=== PATIENT | male | born 1995 | race Caucasian/White ===

== ENCOUNTER 2018-01-25 10:33 | Observation (INO) ==
[2018-01-25] MEDS ORDERED: 0.9 % Sodium Chloride 1,000 ML IVC ONE ×3 (11:11→13:36)
[2018-01-25] MEDS ORDERED: Ondansetron 4 MG/2 ML VIAL IVP ONE (11:11)
[2018-01-25] MEDS ORDERED: *HR* HYDROmorphone (PF) 1 MG/ML SYRINGE IVP ONE (11:16)
[2018-01-25] MEDS ORDERED: Isovue-370 500 ML INFUS..BTL IV ONE (11:17)
[2018-01-25 11:40] LABS: Basophils % 0.3 %; Eosinophils # 0.1 K/mcL (0.0-0.6); Eosinophils % 0.5 %; Hematocrit 46.7 % (37.5-50.1); Hemoglobin 16.4 g/dL (12.9-16.9); Immature Granulocytes % 0.1 % (0-4); Lymphocytes # 3.5 K/mcL (0.6-4.6); Lymphocytes % 34.2 %; Mean Corpuscular HGB Conc 35.1 g/dL (31.6-35.5); Mean Corpuscular Volume 79.8 fL (83.0-100.0); Mean Platelet Volume 9.8 fL (9.4-12.4); Monocytes # 0.6 K/mcL (0.0-1.3); Monocytes % 6.1 %; Platelet Count 321 K/mcL (140-400); Red Blood Count 5.85 M/mcL (4.19-5.50); Red Cell Distribution Width 12.5 % (11.5-14.5); Segmented Neutrophils % 58.8 %
[2018-01-25 12:24] LABS: Alanine Aminotransferase 12 Units/L (7-52); Albumin 4.4 g/dL (3.5-5.7); Albumin/Globulin Ratio 1.3 (1.1-2.2); Alkaline Phosphatase 77 Units/L (34-104); Aspartate Amino Transferase 9 Units/L (13-39); BUN/Creatinine Ratio 16 (6-26); Bilirubin,Indirect 0.4 mg/dL (0.0-1.2); Bilirubin,Total 0.4 mg/dL (0.3-1.0); Blood Urea Nitrogen 16 mg/dL (6-20); Calcium 9.9 mg/dL (8.6-10.3); Carbon Dioxide 26 mEq/L (23-29); Chloride 103 mEq/L (98-107); Globulin 3.3 g/dL (2.4-3.5); Glucose 248 mg/dL (70-105); Lipase 11 Units/L (11-82); Osmolality,Calculated 293 (280-300); Potassium 3.8 mEq/L (3.5-5.1); Sodium 137 mEq/L (136-145); Total Protein 7.7 g/dL (6.4-8.9); eGFR For Non-African Americans > 60 (> 60)
--- NOTE | 2018-01-25 12:24 | Emergency Department Note ---
Disposition Clinical Impression: Tachycardia Acute appendicitis Qualifiers: Acute appendicitis type: with localized peritonitis Qualified Code(s): K35.3 - Acute appendicitis with localized peritonitis Disposition: Admitted As Inpatient Condition: Good Referrals: NONE,PCP [Primary Care Provider] - Sheila Bray [Family Provider] - Forms: ED Satisfaction Letter, Work/School Release Abdominal Pain HPI - General Chief Complaint: ED Abdominal Pain Stated Complaint: "R low abd pain" Source: patient Mode of arrival: ambulatory Limitations: no limitations Nursing Notes Reviewed: Yes Vital Signs Reviewed: Yes - History of Present Illness HPI Narrative: Medical history of diabetes presenting for evaluation of abdominal pain 2 days without fevers chills or vomiting. Started yesterday as a dull pain in the right lower quadrant that has been progressively worse in nature. Significant tenderness to palpation with associated guarding. No rebound tenderness. Not associated with heeltap, rising, pain with speed bumps while driving. Patient has had nausea and mildly decreased appetite but no nausea or vomiting. No change in bowel movements. Patient's remains tachycardic on exam which she states is possibly secondary to anxiety as well as having to walk through the whole hospital to find the emergency department. Pain Scale: 5 - Related Data Allergies Allergy/AdvReac Type Severity Reaction Status Date / Time Penicillins Allergy Hives Verified 01/25/18 11:41 All systems ED: reviewed and negative except as stated. Review of Systems: As Per HPI Constitutional: Denies: fever, chills Cardiovascular: Denies: chest pain, palpitations Respiratory: Denies: cough, dyspnea Gastrointestinal: Reports: abdominal pain, nausea. Denies: vomiting, diarrhea, constipation Genitourinary: Denies: urgency, dysuria, frequency Musculoskeletal: Denies: back pain Integumentary: Denies: rash, abrasion, lesions Neurological: Denies: headache, weakness Psychiatric: Denies: anxiety Endocrine: Denies: fatigue Abdominal Pain PMH - Past Medical History Medical history: Reports: diabetes Male Surgical History: Reports: Adenoidectomy, Tonsillectomy Psychiatric history: Reports: no psych history - Social History Smoking status: Never smoker Alcohol use: Reports: none Drug use: Reports: none Physical Exam General: Well appearing, nontoxic, no acute distress Head: Normocephalic Atraumatic Eyes: PERRL, EOMI ENT: Airway patent, no stridor Neck: supple Chest: Lungs clear to auscultation bilateral Cardiac: Tachycardic but regular with no significant rubs murmurs or gallops Abdomen: soft, significant tenderness to the right lower quadrant with guarding but no rebound, nondistended; no CVA tenderness. Musculoskeletal: Calves symmetric, nontender Skin: No rash, normal skin tone Neuro: Awake alert and appropriate without focal deficit. - General Limitations: no limitations General appearance: alert, in no apparent distress Course - Reevaluation(s) Reevaluation #1: Patient remains stable within the emergency department. He has only required 1 dose of pain medications. 2 L of fluids have been ordered. Patient's heart rate is improving. EKG shows sinus tachycardia. Cefoxitin ordered as discussed with Dr. Bellamy. - Consultations Consultation #1: Discussed with Dr. Bellamy. Type I diabetic with typically well-controlled blood sugars at home. Mildly atypical presentation with CT confirmed acute appendicitis. No significant lab abnormalities. No ketones within the urine. Patient has received fluids for tachycardia. He accepts the patient for admission. Vital Signs Temperature 98.0 F 01/25/18 10:37 Pulse Rate 141 01/25/18 10:37 Respiratory Rate 22 01/25/18 10:37 Blood Pressure 145/85 01/25/18 10:37 O2 Sat by Pulse Oximetry 97 01/25/18 10:37 Temperature 98.0 F 01/25/18 10:48 Pulse Rate 141 01/25/18 13:32 Respiratory Rate 18 01/25/18 13:32 Blood Pressure 143/73 01/25/18 13:32 O2 Sat by Pulse Oximetry 97 01/25/18 13:32 Oxygen Delivery Oxygen Delivery Room Air Abdominal Pain - Medical Records Medical records reviewed: Yes I reviewed the patient's medical records. - Lab Data Lab results reviewed: Yes I reviewed the patient's lab results. Result diagrams: 01/25/18 11:20 01/25/18 11:20 Lab Results 01/25/18 01/25/18 01/25/18 Range/Units 10:45 11:20 11:20 WBC 10.2 (4.3-11.1) K/mcL RBC 5.85 H (4.19-5.50) M/mcL Hgb 16.4 (12.9-16.9) g/dL Hct 46.7 (37.5-50.1) % MCV 79.8 L (83.0-100.0) fL MCH 28.0 (28.0-33.3) pg MCHC 35.1 (31.6-35.5) g/dL RDW 12.5 (11.5-14.5) % Plt Count 321 (140-400) K/mcL MPV 9.8 (9.4-12.4) fL Immature Gran % 0.1 (0-4) % Seg Neutrophils % 58.8 % Lymphocytes % 34.2 % Monocytes % 6.1 % Eosinophils % 0.5 % Basophils % 0.3 % Neutrophils # 6.0 (1.6-8.9) K/mcL Lymphocytes # 3.5 (0.6-4.6) K/mcL Monocytes # 0.6 (0.0-1.3) K/mcL Eosinophils # 0.1 (0.0-0.6) K/mcL Basophils # 0.0 (0.0-0.2) K/mcL Sodium 137 (136-145) mEq/L Potassium 3.8 (3.5-5.1) mEq/L Chloride 103 (98-107) mEq/L Carbon Dioxide 26 (23-29) mEq/L BUN 16 (6-20) mg/dL Creatinine 0.99 (0.70-1.30) mg/dL Est GFR ( Amer) > 60 (> 60) Est GFR (Non-Af Amer) > 60 (> 60) BUN/Creatinine Ratio 16 (6-26) Glucose 248 H (70-105) mg/dL Calculated Osmolality 293 (280-300) Calcium 9.9 (8.6-10.3) mg/dL Total Bilirubin 0.4 (0.3-1.0) mg/dL Direct Bilirubin 0.0 (0.0-0.2) mg/dL Indirect Bilirubin 0.4 (0.0-1.2) mg/dL AST 9 L (13-39) Units/L ALT 12 (7-52) Units/L Alkaline Phosphatase 77 (34-104) Units/L Serum Total Protein 7.7 (6.4-8.9) g/dL Albumin 4.4 (3.5-5.7) g/dL Globulin 3.3 (2.4-3.5) g/dL Albumin/Globulin Ratio 1.3 (1.1-2.2) Lipase 11 (11-82) Units/L Urine Color Yellow (Yellow) Urine Clarity Clear (Clear) Urine pH 6.5 (5.0-8.0) pH Units Ur Specific [place] 1.015 (1.010-1.025) Urine Protein 30 H (Neg-Trace) mg/dL Urine Glucose (UA) >=1000 H (Normal) mg/dL Urine Ketones Negative (Negative) mg/dL Urine Blood Negative (Negative) Urine Nitrite Negative (Negative) Urine Bilirubin Negative (Negative) Urine Urobilinogen Normal (Normal) mg/dL Ur Leukocyte Esterase Negative (Negative) Urine Bacteria None Seen (None-Few) per hpf Ur Culture Indicated? NO (NO) - Radiology Data Radiology results reviewed: Yes I reviewed the patient's radiology results. - EKG Data EKG attestation: Yes I reviewed and interpreted this EKG. EKG results narrative: EKG shows sinus tachycardia with ventricular rate of 143. NV 138. QRS 85. QTC 410. Patient has no significant ST elevations or depressions. No previous EKG for comparison.
[2018-01-25 12:58] LABS: Bilirubin,Urine Negative (Negative); Blood,Urine Negative (Negative); Clarity,Urine Clear (Clear); Color,Urine Yellow (Yellow); Glucose,Urine (UA) >=1000 mg/dL (Normal); Ketones,Urine Negative (Negative); Leukocyte Esterase,Urine Negative (Negative); Nitrite,Urine Negative (Negative); PH,Urine 6.5 pH Units (5.0-8.0); Protein,Urine 30 mg/dL (Neg-Trace); Specific Gravity,Urine 1.015 (1.010-1.025); Urobilinogen,Urine Normal (Normal)
[2018-01-25 13:17] LABS: Bacteria,Urine None Seen per hpf (None-Few)
[2018-01-25] MEDS ORDERED: cefOXitin 2,000 MG in 0.9 % Sodium Chloride Mini Bag 100 ML IVPB STA (13:35)
[2018-01-25] MEDS ORDERED: *HR* Promethazine 25 MG/ML VIAL IVP PRN ×3 (14:13→18:34)
[2018-01-25] MEDS ORDERED: Ondansetron 4 MG/2 ML VIAL IVP PRN ×2 (14:13→18:34)
[2018-01-25] MEDS ORDERED: OXYCODONE Oral CONC 10 MG/0.5 ML ORAL.SYG SL PRN ×4 (14:13→18:34)
[2018-01-25] MEDS ORDERED: 0.9 % Sodium Chloride 1,000 ML IVC SCH (14:15)
[2018-01-25] MEDS ORDERED: Pantoprazole 40 MG VIAL IVP SCH (14:15)
[2018-01-25] MEDS ORDERED: *HR* Dextrose 50 % in Water (Syg) 50 ML SYRINGE IVP PRN ×2 (14:18→18:34)
[2018-01-25] MEDS ORDERED: Dextrose Gel 15 GM/37.5 ML TUBE PO PRN ×4 (14:18→18:34)
[2018-01-25] MEDS ORDERED: D5% in Water 1,000 ML IVC PRN ×2 (14:18→18:34)
--- NOTE | 2018-01-25 14:38 | General Surg History&Physical ---
<Michel Calhoun T - Last Filed: 01/25/18 14:43> Date of Encounter: 01/25/18 Time of Encounter: 14:31 Assessment and Plan (1) Acute appendicitis Current Visit: Yes Status: Acute DX: Acute appendicitis confirmed by CT Ab/Pelvis and clinical presentation of RLQ abdominal pain. Plan: OR with Dr. Bellamy planned for today. Consent obtained. The assessment and plan as outlined above was discussed with the patient and/or family members who expressed understanding and agreement. All questions were answered. Qualifiers: Acute appendicitis type: with localized peritonitis Qualified Code(s): K35.3 - Acute appendicitis with localized peritonitis History of Present Illness Chief complaint: Abdominal Pain HPI: Mr. Webb is a 22 year old male complaining of 2 days of abdominal pain. Pain is in his RLQ, constant, rated 4/10 in severity, and worsening. He denies N/V, fever, night sweats. He is passing gas, last BM was yesterday, and his last meal was last night. He has a 10 year history of T1DM which is monitored by an endcronologist. Patient states last HgbA1C was 9, and patient has always had a high A1C. CT of abdomen/pevlis done at ED shows appedicitis without rupture, fatty liver, and prominent mesenteric lymph nodes. At ED CBC was also one shwoing, nrmal WBC 10.2, normal H/H 16.4/46.7. CMP showed glucose elevated at 248. Patient has no history of abdominal surgeries, cardivascular disease, or use of blood thinners. Consent was take for laproscopic appendectomy. Patient was tachyaardic at ED. Past Med Surg Social Fam HX - Past Medical History Medical history: diabetes Psychiatric history: no psych history - Social History Smoking Status: Never smoker Alcohol use: none Drug use: none Medications and Allergies Subcutaneous Insulin Pump [T:Slim] 1 each MC AD 01/25/18 [History] 3 Allergy/AdvReac Type Severity Reaction Status Date / Time Penicillins Allergy Hives Verified 01/25/18 14:25 Review of Systems All systems PM: The remainder of the systems were reviewed and are negative - Constitutional as per HPI - Gastrointestinal as per HPI General Surgery Exam Initial Vital Signs Temp Pulse Resp BP Pulse Ox 98.0 F 141 22 145/85 97 01/25/18 10:37 01/25/18 10:37 01/25/18 10:37 01/25/18 10:37 01/25/18 10:37 - General physical appearance well developed, well nourished, moderate distress - Respiratory normal expansion, clear to auscultation - Cardiovascular Cardiovascular exam: Present: tachycardia, no murmurs/rubs/gallops - Abdomen Abdomen general surgery: Present: bowel sounds present, soft, tender. Absent: distended, guarding Abdominal Tenderness: Present: RLQ Hernia: Present: none - Neurologic Present: CN 2-12 grossly intact - Psychiatric Psychiatric general surgery: Present: A&Ox3, appropriate, oriented to person, oriented to place, oriented to time, speech is normal, memory intact Results - Labs 01/25/18 11:20 01/25/18 11:20 Abnormal lab results RBC 5.85 M/mcL (4.19-5.50) H 01/25/18 11:20 MCV 79.8 fL (83.0-100.0) L 01/25/18 11:20 Glucose 248 mg/dL (70-105) H 01/25/18 11:20 AST 9 Units/L (13-39) L 01/25/18 11:20 Urine Protein 30 mg/dL (Neg-Trace) H 01/25/18 10:45 Urine Glucose (UA) >=1000 mg/dL (Normal) H 01/25/18 10:45 Diabetes panel 01/25/18 Range/Units 11:20 Sodium 137 (136-145) mEq/L Potassium 3.8 (3.5-5.1) mEq/L Chloride 103 (98-107) mEq/L Carbon Dioxide 26 (23-29) mEq/L BUN 16 (6-20) mg/dL Creatinine 0.99 (0.70-1.30) mg/dL Glucose 248 H (70-105) mg/dL Calcium 9.9 (8.6-10.3) mg/dL AST 9 L (13-39) Units/L ALT 12 (7-52) Units/L Alkaline Phosphatase 77 (34-104) Units/L Albumin 4.4 (3.5-5.7) g/dL Calcium panel 01/25/18 Range/Units 11:20 Calcium 9.9 (8.6-10.3) mg/dL Albumin 4.4 (3.5-5.7) g/dL Pituitary panel 01/25/18 Range/Units 11:20 Sodium 137 (136-145) mEq/L Potassium 3.8 (3.5-5.1) mEq/L Chloride 103 (98-107) mEq/L Carbon Dioxide 26 (23-29) mEq/L BUN 16 (6-20) mg/dL Creatinine 0.99 (0.70-1.30) mg/dL Glucose 248 H (70-105) mg/dL Calcium 9.9 (8.6-10.3) mg/dL Adrenal panel 01/25/18 Range/Units 11:20 Sodium 137 (136-145) mEq/L Potassium 3.8 (3.5-5.1) mEq/L Chloride 103 (98-107) mEq/L Carbon Dioxide 26 (23-29) mEq/L BUN 16 (6-20) mg/dL Creatinine 0.99 (0.70-1.30) mg/dL Glucose 248 H (70-105) mg/dL Calcium 9.9 (8.6-10.3) mg/dL Total Bilirubin 0.4 (0.3-1.0) mg/dL AST 9 L (13-39) Units/L ALT 12 (7-52) Units/L Alkaline Phosphatase 77 (34-104) Units/L Albumin 4.4 (3.5-5.7) g/dL All other labs normal. <Terrence Bellamy - Last Filed: 01/25/18 22:02> Date of Encounter: 01/25/18 History of Present Illness HPI: Mr. Webb is a 22 year old male Review of Systems All systems PM: The remainder of the systems were reviewed and are negative General Surgery Exam Initial Vital Signs Temp Pulse Resp BP Pulse Ox 98.0 F 141 22 145/85 97 01/25/18 10:37 01/25/18 10:37 01/25/18 10:37 01/25/18 10:37 01/25/18 10:37 Results - Labs 01/25/18 11:20 01/25/18 11:20 Abnormal lab results RBC 5.85 M/mcL (4.19-5.50) H 01/25/18 11:20 MCV 79.8 fL (83.0-100.0) L 01/25/18 11:20 Glucose 248 mg/dL (70-105) H 01/25/18 11:20 AST 9 Units/L (13-39) L 01/25/18 11:20 Urine Protein 30 mg/dL (Neg-Trace) H 01/25/18 10:45 Urine Glucose (UA) >=1000 mg/dL (Normal) H 01/25/18 10:45 All other labs normal. - Attending Attestation I examined this patient and my medical decision-making was reviewed with the Resident Physician. I agree with the documented findings, disposition and treatment plan as described except to the extent set forth below. The patient is seen and evaluated with the resident prior to surgery. I personally reviewed the CAT scan images. He is history and radiologic findings are consistent with acute appendicitis. I have recommended laparoscopic appendectomy. He understands this and wishes to proceed. Terrence Bellamy MD FACS
[2018-01-25] MEDS ORDERED: CefOXitin 1,000 MG VIAL ONE (15:33)
[2018-01-25] MEDS ORDERED: Ondansetron 4 MG/2 ML VIAL ONE ×2 (15:42→17:47)
[2018-01-25] MEDS ORDERED: Lidocaine -MPF 2% 2 ML VIAL ONE ×3 (15:42→17:47)
[2018-01-25] MEDS ORDERED: *HR* FentaNYL (PF) 100 MCG/2 ML VIAL ONE ×2 (15:42→17:46)
[2018-01-25] MEDS ORDERED: Neostigmine Methylsulfate 3 MG/3 ML SYRINGE ONE (15:42)
[2018-01-25] MEDS ORDERED: *HR* Propofol 200 MG/20 ML VIAL IVP ONE ×3 (15:42→17:46)
[2018-01-25] MEDS ORDERED: *HR* Rocuronium Bromide 50 MG/5 ML VIAL ONE (15:42)
[2018-01-25] MEDS ORDERED: *HR* Midazolam HCl 2 MG/2 ML VIAL ONE ×2 (15:42→15:57)
--- NOTE | 2018-01-25 15:42 | Anesthesia Evaluation PreOp ---
Date of Encounter: 01/25/18 Time of Encounter: 15:40 - Past History Planned Operation: Lap Appy Cardiac History: Denies any Significant Hx Pulmonary History: Denies Any Significant HX AREA COORDINATOR History: Denies Any Significant HX Other Medical History: Diabetes Type I (on Insulin pump. HbA1c = 9) Anesthesia History: No Prior Anesthetic Complications, Past Anesthesia, MH (No FamHx of MH) Alcohol Use: none Drug use: none Medications and Allergies Subcutaneous Insulin Pump [T:Slim] 1 each MC AD 01/25/18 [History] 3 Allergy/AdvReac Type Severity Reaction Status Date / Time Penicillins Allergy Hives Verified 01/25/18 14:25 - Meds/Allergy Pre-op Review Medications Reviewed: Yes Allergies Reviewed: Yes Beta Blockers on Current Med List: No Anesthesia Results - Labs 01/25/18 11:20 01/25/18 11:20 Laboratory Results Impressions Abdomen/Pelvis CT 01/25/18 11:17 IMPRESSION: 1. Acute appendicitis without rupture. 2. Fatty infiltration of the liver. 3. Mildly prominent reactive mesenteric nodes. RECOMMENDATIONS: Surgical consultation D/ / 01/25/2018 14:25:03 Manda Amaral MD / Jenny Price Interpreting Provider: Manda Amaral MD Anesthesia Exam Vital Signs Temp Pulse Resp BP Pulse Ox 01/25/18 13:32 141 18 143/73 97 01/25/18 10:53 153 18 143/98 95 01/25/18 10:48 98.0 F 141 22 145/85 97 01/25/18 10:37 98.0 F 141 22 145/85 97 Intake and Output 01/24/18 01/25/18 01/25/18 23:59 07:59 15:59 Intake Total 1000 / 1000 Balance 1000 / 1000 Intake: IV Fluids 1000 / 1000 0.9 % Sodium Chloride 1,000 ML 1000 / 1000 @ 999 mls/hr IVC .Q1H1M ONE Rx# :[id number] Other: Weight 113.001 kg Patient Weight 01/25/18 23:59 Weight 113.001 kg Height: 5'8" Weight: 249# BMI = 38 NPO (# of Hours): [place] Pain Scale Used: Numeric (1 - 10) - HEENT Pupil (Motor): Pupils equal, EOMI Mallampati: III Teeth: Normal Oral Opening: Greater than 3 - AREA COORDINATOR LOC: Oriented AREA COORDINATOR Motor: Normal RUE, Normal LUE, Normal RLE, Normal LLE, Normal Face AREA COORDINATOR Sensory: Normal: RUE, LUE, RLE, LLE, Face - Cardiac Rhythm: Regular Murmur: None - Pulmonary Breath Sounds: bilateral Clear Respiratory Effort: Symmetrical Anesthesia Assess/Plan ASA Score: 3 (Type 1 DM) Modified [place] Scale for Level of Consciousness: Cooperative, oriented, and tranquil Anesthetic Plan: General Monitoring Plan: Standard Monitors Recovery Plan: PACU Anes Supervising Prov Stmt: Pt seen/evaluated, R&B Discussed, questions answered and consent obtained. Ana Maria Barnard MD
[2018-01-25] MEDS ORDERED: *HR* Succinylcholine 200 MG/10 ML VIAL IVP ONE ×2 (15:46→17:47)
[2018-01-25] MEDS ORDERED: Lidocaine -MPF 4% 5 ML AMPUL ONE ×2 (15:46→17:47)
[2018-01-25] MEDS ORDERED: *HR* Morphine 2 MG/ML SYRINGE IVP PRN ×2 (15:48→18:34)
[2018-01-25] MEDS ORDERED: *HR* OxyCODONE Immed Rel 5 MG TABLET PO PRN ×2 (15:48→18:34)
--- NOTE | 2018-01-25 15:57 | Discharge Summary ---
Date of Encounter: 01/26/18 Time of Encounter: 07:00 - Discharge Diagnosis (1) Acute appendicitis Priority: Primary Status: Acute Qualifiers: Acute appendicitis type: with localized peritonitis Qualified Code(s): K35.3 - Acute appendicitis with localized peritonitis (2) Diabetes mellitus Priority: Secondary Status: Acute Qualifiers: Diabetes mellitus type: type 1 Diabetes mellitus complication status: with unspecified complications Qualified Code(s): E10.8 - Type 1 diabetes mellitus with unspecified complications General Surgery Exam Initial Vital Signs Temp Pulse Resp BP Pulse Ox 98.0 F 141 22 145/85 97 01/25/18 10:37 01/25/18 10:37 01/25/18 10:37 01/25/18 10:37 01/25/18 10:37 Vital Signs Temp Pulse Resp BP Pulse Ox 01/26/18 06:48 98.0 F 104 14 123/76 96 01/26/18 03:59 97.9 F 108 14 116/69 95 01/25/18 22:52 98.3 F 134 16 130/74 96 01/25/18 21:14 98.8 F 133 14 129/76 94 01/25/18 20:25 98.7 F 133 14 115/63 93 01/25/18 19:00 97.9 F 130 18 119/75 97 01/25/18 18:30 98.6 F 119 18 136/78 95 01/25/18 18:15 97.3 F L 107 16 132/76 94 01/25/18 18:05 97.3 F L 113 16 129/80 95 01/25/18 17:55 113 16 133/84 95 01/25/18 17:45 113 16 123/70 93 01/25/18 17:35 97.0 F L 112 16 115/64 95 01/25/18 13:32 141 18 143/73 97 01/25/18 10:53 153 18 143/98 95 01/25/18 10:48 98.0 F 141 22 145/85 97 01/25/18 10:37 98.0 F 141 22 145/85 97 Intake and Output 01/25/18 01/25/18 01/26/18 15:59 23:59 07:59 Intake Total 1000 / 1000 1350 / 1350 Output Total 20 / 20 300 / 300 Balance 1000 / 1000 -20 / -20 1050 / 1050 Intake: IV Fluids 1000 / 1000 1100 / 1100 0.9 % Sodium Chloride 1,000 ML 1000 / 1000 1000 / 1000 @ 125 mls/hr IVC .Q8H BRIAN Rx#: [id number] Ofirmev 1,000 mg/100 ml 1,000 100 / 100 mg In 100 ml @ 400 mls/hr IVPB Q6HR BRIAN Rx#:[id number] Oral 250 / 250 Output: Urine 0 / 0 300 / 300 Estimated Blood Loss Other: Percent of Meal Consumed 100% # Bowel Movements 0 Weight 113.001 kg 114.9 kg Blood Glucose* 271 Patient Weight 01/26/18 23:59 Weight 114.9 kg VITAL SIGNS: Reviewed. See [facility] GENERAL: In no apparent distress. (Noted per bedside RN, and MAR patient has been refusing insulin coverage) HEENT: Normocephalic, atraumatic, pupils are equal and reactive, extraocular motions intact, oropharynx is pink and moist, there is no neck adenopathy or JVD noted. CHEST/RESPIRATORY: The thorax is free from signs of trauma. Lung sounds: clear to auscultation, normal respiratory effort CARDIAC: Regular rate and rhythm (92 104 bpm). Normal S1 and S2, without murmurs , gallops, or rubs. VASCULAR: No Edema. 2+ peripheral pulses. ABDOMEN: soft, expected postoperative tenderness, hypoactive bowel sounds INCISION: Surgical incision is clean, dry, and intact. There are no signs of cellulitis or infection noted. MUSCULOSKELETAL: Good range of motion of all major joints. Extremities without clubbing, cyanosis or edema. NEUROLOGIC EXAM: Alert and oriented x 3. Speech normal. Follows commands. PSYCHIATRIC: Mood normal. SKIN: No rash or lesions. - Hospital Course Hospital course: Mr. Webb is a 22 year old male who presented on 01/25/2018 with a one-day history of right lower quadrant pain. His CT and clinical course were consistent with acute appendicitis without rupture. He was taken to the operating room where he underwent laparoscopic appendectomy by Dr. Bellamy on 2017. He is ambulating avoiding without difficulty, tolerating a diet without nausea or vomiting, afebrile, and his vital signs are stable. We will begin discharge planning to home with a follow-up in the office in approximately 2 weeks. Of note, he reports uncontrolled blood sugars at home in the 250s. He was tachycardic in the 140s upon presentation and has received 4 L normal saline total heart rate is currently 90s to low 100s. He is advised to follow-up closely with his PCP and obtain better control of his blood sugars. Also of note he refused nurse coverage of his elevated glucose stating that "I haven't insulin pump all take care of it." I did review with the patient that we would need to give him a dose of sub Q insulin prior to leaving the hospital and he was agreeable. - Time Spent with Patient Total time spent providing and/or coordinating discharge services: - Discharge Medications Prescriptions: HYDROcodone/Acet 5/325 mg [[place] 5-325 mg] 1 tab PO Q6H PRN 5 Days #20 tab PRN Reason: Pain Ibuprofen 800 mg PO Q8H PRN #30 tablet PRN Reason: Pain Polyethylene Glycol 3350 [MiraLAX Powder Bulk 17.9 Oz] 1 scoop PO DAILY #510 gm Home Medications: Subcutaneous Insulin Pump [T:Slim] 1 each MC AD 01/25/18 [History] HYDROcodone/Acet 5/325 mg [[place] 5-325 mg] 1 tab PO Q6H PRN 5 Days #20 tab 01/26 [Rx] Ibuprofen 800 mg PO Q8H PRN #30 tablet 01/26/18 [Rx] Polyethylene Glycol 3350 [MiraLAX Powder Bulk 17.9 Oz] 1 scoop PO DAILY #510 gm 01/26/18 [Rx] Allergies/Adverse Reactions: 3 Allergy/AdvReac Type Severity Reaction Status Date / Time Penicillins Allergy Hives Verified 01/25/18 14:25 Date of admission: 01/25/18 14:56 Primary care physician: PCP NONE Discharging clinician: Leslie Spence Anticipated date of discharge: 01/26/18 - Patient Status Disposition: Home, Self-Care Condition: Good Functional capacity at discharge: independent ambulation Overall status at discharge: patient is progressing back to baseline - Discharge Instructions Instructions: Laparoscopic Appendectomy (DC), Diabetes Mellitus Type 1 in Adults (DC) Follow Up With: Leslie Spence, [employer] [Advanced Practice Nurse] - 02/09/18 8:00 am Forms: Inpatient Work/School Release Additional Instructions: General Surgical Discharge Instructions 1. No pushing, pulling, or lifting greater than 15 lbs for 2 weeks (depending upon procedure). 2. You may shower beginning today, but no tub baths, soaking, or swimming for 2 weeks. 3. You may resume driving when you are off narcotics and are safe to react in a car. 4. Take ibuprofen every 8 hours for discomfort. If this does not relieve discomfort, you may take the as needed Hydrocodone/ acetaminophen. Take narcotics as directed. Do not take more narcotics then directed and do not share your narcotics with any other person. Do not drink alcohol while on narcotics. Do not take extra Tylenol if you take the Hydrocodone/acetaminophen 5. Take stool softeners (Colace) or a water based laxative (Miralax) while taking narcotics. Take miralax daily until you have daily bowel movements that are mashed potatoes consistency. You may hold for loose stools. 6. Report any fevers greater than 100.5F, increase abdominal discomfort, drainage that looks like pus, increased redness or pain at the surgical site, or any vomiting. 7. Report any pain in the calves, shortness of breath, or rapid heartbeat. 8. Follow-up in the office as directed. - Diet and Activity Activity: increase activity as tolerated Diet: diabetic diet
[2018-01-25] MEDS ORDERED: KETAMINE HCL 50 MG/ML SYRINGE IV ONE (15:59)
[2018-01-25] MEDS ORDERED: cefOXitin 2,000 MG in Water for inj. (sterile) 20 ML 20 ML IVP SCH (16:00)
[2018-01-25] MEDS ORDERED: Dexamethasone 4 MG/ML VIAL ONE ×2 (16:40→17:47)
[2018-01-25] MEDS ORDERED: *HR* Morphine 10 MG/ML VIAL ONE (17:07)
--- NOTE | 2018-01-25 17:18 | Operative Note ---
Date of procedure: 01/25/18 Pre-op diagnosis: Acute appendicitis Post-op diagnosis: same Procedure: Laparoscopic appendectomy Anesthesia: PAT Surgeon: Terrence Bellamy Was there an assistant professor of chemistry present: Yes Maintenance Service Dispatcher: Maribell Wall Estimated blood loss (cc): 20 Specimen: Appendix Condition: stable Disposition: PACU Procedure in Detail: After informed consent the patients taking major operative suite placed supine position given adequate general anesthetic. Abdomen is prepped and draped in sterile fashion utilizing ChloraPrep standard draping techniques. Timeout was taken and patient is identified. Made a vertical midline incision below the umbilicus and placed 2 traction stitches. The abdomen was entered visually and I placed a Shea trocar. The abdomen was insufflated to 15 mmHg pressure CO2. Placed a 5 mm trocar in the suprapubic area and a 12 trocar in the right upper quadrant. The appendix was identified. I divided the lateral peritoneal attachments. I divided the meso- appendix with a vascular load was able to divide the appendix off the base the cecum with a gastrointestinal load using the laparoscopic stapler. Blood loss of 20 mL. There is no evidence of perforation. I irrigated with copious amounts of antibiotic containing solution. There is no evidence of bleeding. No evidence of fecal and purulent contamination. There was acute appendicitis. Photographic documentation was taken. The abdomen was closed with 0 Vicryl on the fascia 2-0 Vicryl subcutaneous level and 4-0 Vicryl subcuticular
[2018-01-25] MEDS ORDERED: Insulin LISPRO 300 UNITS/3 ML VIAL SQ SCH (18:00)
--- NOTE | 2018-01-25 18:02 | Anesthesia Evaluation Post Op ---
Date of Encounter: 01/25/18 Time of Encounter: 18:01 - Vital Signs Vital Signs: Vital Signs/O2 Sat/Glucose, Most Recent Temp Pulse Resp BP Pulse Ox 97.0 F L 113 16 133/84 95 01/25/18 17:35 01/25/18 17:55 01/25/18 17:55 01/25/18 17:55 01/25/18 17:55 Blood Glucose* 271 - Lungs Lungs: Clear Ascult./Percussion - Airway Airway: Non-obstructed - Cardiovascular Regular Rate, Baseline Rhythm - Mental Status Mental Status: Alert & Oriented, Answers Appropriately - Pain Pain Scale: 0 Pain Scale used: Numeric (1 - 10) - Nausea Vomiting Nausea Vomiting: Not Present - Hydration Hydration: Tolerates oral liquids - Discharge PostOp Status: Transfer Patient to floor
--- NOTE | 2018-01-25 18:55 | Electrocardiograph Report ---
[facility] Test Date: 2018-01-25 Pat Name: Domenic Webb Department: 103 Room: 3A22 Gender: M [employer] Chief Inspector: ROBERT : 1995 Requested By: [id number] Order Number: [id number] Reading MD: Shiv Arzate Measurements Intervals [place] Rate: 143 P: 39 MI: 138 QRS: -1 QRSD: 85 T: 34 QT: 327 QTc: 410 Interpretive Statements SINUS TACHYCARDIA, NONSPECIFIC T-WAVE ABNORMALITY ABNORMAL RHYTHM ECG Electronically Signed On 01-25-2018 18:53:56 EDT by Shiv Arzate
[2018-01-25] MEDS ORDERED: Acetaminophen 325 MG TABLET PO PRN (19:49)
[2018-01-25] MEDS ORDERED: 0.9 % Sodium Chloride 500 ML IVC ONE (20:14)
[2018-01-25] MEDS: 0.9 % Sodium Chloride 1,000 ML IVC SCH (21:19)
[2018-01-26] MEDS: cefOXitin 2,000 MG in Water for inj. (sterile) 20 ML 20 ML IVP SCH ×2 (00:34→08:08)
[2018-01-26] MEDS: Acetaminophen IV 1,000 MG/100 ML INFUS..BTL IVPB SCH ×5 (00:36→13:16)
[2018-01-26] MEDS: Insulin LISPRO 300 UNITS/3 ML VIAL SQ SCH ×4 (03:39→12:11)
[2018-01-26] MEDS: 0.9 % Sodium Chloride 1,000 ML IVC SCH (03:41)
[2018-01-26 07:24] LABS: Basophils % 0.1 %; Hematocrit 40.6 % (37.5-50.1); Immature Granulocytes % 0.6 % (0-4); Lymphocytes % 28.9 %; Mean Corpuscular HGB Conc 34.7 g/dL (31.6-35.5); Mean Corpuscular Hemoglobin 28.1 pg (28.0-33.3); Mean Corpuscular Volume 80.9 fL (83.0-100.0); Mean Platelet Volume 9.9 fL (9.4-12.4); Monocytes # 0.7 K/mcL (0.0-1.3); Neutrophils # 6.6 K/mcL (1.6-8.9); Platelet Count 283 K/mcL (140-400); Red Blood Count 5.02 M/mcL (4.19-5.50); Red Cell Distribution Width 12.6 % (11.5-14.5); Segmented Neutrophils % 63.4 %
[2018-01-26 07:25] LABS: Hemoglobin 14.1 g/dL (12.9-16.9)
[2018-01-26] MEDS ORDERED: 0.9 % Sodium Chloride 1,000 ML IVC ONE (07:37)
[2018-01-26 07:39] LABS: BUN/Creatinine Ratio 15 (6-26); Blood Urea Nitrogen 11 mg/dL (6-20); Calcium 8.6 mg/dL (8.6-10.3); Carbon Dioxide 19 mEq/L (23-29); Chloride 108 mEq/L (98-107); Glucose 235 mg/dL (70-105); Osmolality,Calculated 291 (280-300); Potassium 4.4 mEq/L (3.5-5.1); Sodium 137 mEq/L (136-145); eGFR For Non-African Americans > 60 (> 60)
[2018-01-26] MEDS ORDERED: Dextrose Gel 15 GM/37.5 ML TUBE PO PRN ×2 (07:39)
[2018-01-26] MEDS ORDERED: *HR* Dextrose 50 % in Water (Syg) 50 ML SYRINGE IVP PRN (07:39)
[2018-01-26] MEDS ORDERED: D5% in Water 1,000 ML IVC PRN (07:39)
[2018-01-26] MEDS ORDERED: Ketorolac 30 MG/ML VIAL IVP ONE (07:41)
[2018-01-26] MEDS ORDERED: *HR* HYDROcodone/Acet 5/325 mg TABLET PO PRN (07:43)
[2018-01-26] MEDS ORDERED: Pantoprazole 40 MG VIAL IVP SCH (09:00)
[2018-01-26 11:57] VITALS: BP 124/77
--- NOTE | 2018-01-26 13:04 | Event Note ---
Date of Encounter: 01/26/18 Time of Encounter: 13:00 Reviewed with Charge nurse, pt's maiden was Tracey. Pt was registered under Tracey , stated to this LEATH[facility]RIER that was his name, and signed his consent for surgery as such. He recently changed his last name to Butler and it is now updated in [employer].
--- NOTE | 2018-01-29 18:00 | Electrocardiograph Report ---
[place] [address] Test Date: 2018-01-26 Pat Name: Domenic Butler Department: 115 Room: 3A22 Gender: M [facility] [employer] Coordinator: : 1995 Requested By: Order Number: [id number] Reading MD: Melanie Craft Measurements Intervals [place] Rate: 114 P: 40 [place]: 161 QRS: 0 QRSD: 94 T: 19 QT: 314 QTc: 381 Interpretive Statements SINUS TACHYCARDIA MINIMAL VOLTAGE CRITERIA FOR LVH, CONSIDER NORMAL VARIANT NONSPECIFIC T-WAVE ABNORMALITY ABNORMAL RHYTHM ECG Electronically Signed On 01-29-2018 17:58:49 EDT by Melanie Craft
--- NOTE | 2018-01-31 21:17 | Electrocardiograph Report ---
[address] [address] Test Date: 2018-01-26 Pat Name: Domenic Butler Department: 115 Room: 3A22 Gender: M Flow Coordinator: : 1995 Requested By: Leslie Spence Order Number: [id number] Reading MD: Melanie Craft Measurements Intervals [place] Rate: 111 P: 35 MI: 159 QRS: 3 QRSD: 84 T: 28 QT: 306 QTc: 372 Interpretive Statements SINUS TACHYCARDIA ABNORMAL RHYTHM ECG Electronically Signed On 01-31-2018 17:35:52 EDT by Melanie Craft
== END 2018-01-26 14:31 | disposition home or self-care (01) ==
LOC: 3ANU 10:33 → EMEROO 10:33 → 3ANU 15:33
PROVIDERS: ADMIT Surgery; ATTEND Surgery